=== PATIENT | male | born 1960 | race Caucasian/White ===

== ENCOUNTER 2020-10-02 14:16 | Outpatient (CLI) | payer BC | END 2020-10-02 23:59 | disposition home or self-care (01) | LOC: MRI 14:16 | PROVIDERS: ATTEND Family Medicine | DX: S83.232A Complex tear of medial meniscus, current injury, left knee, initial encounter (principal); S83.231A Complex tear of medial meniscus, current injury, right knee, initial encounter; M25.462 Effusion, left knee; M25.461 Effusion, right knee; X58.XXXA Exposure to other specified factors, initial encounter; Y93.89 Activity, other specified; Y92.89 Other specified places as the place of occurrence of the external cause; Y99.8 Other external cause status | CPT/HCPCS: 73721-TC ==

== ENCOUNTER → 2021-01-03 | Outpatient (CLI) | payer BC ==
[~2021-01-03] MED LIST: GADOTERATE MEGLUMINE 10 MMOL/20 ML VIAL IV ONE
== END | disposition home or self-care (01) ==
LOC: MRI 10:07
PROVIDERS: ATTEND Family Medicine
DX: D73.4 Cyst of spleen (principal); N28.1 Cyst of kidney, acquired; K76.89 Other specified diseases of liver; M47.813 Spondylosis without myelopathy or radiculopathy, cervicothoracic region; M48.03 Spinal stenosis, cervicothoracic region; M25.78 Osteophyte, vertebrae
CPT/HCPCS: 72141; 74183; A9575

== ENCOUNTER 2021-01-31 13:44 | Outpatient (CLI) | payer BC | END 2021-01-31 23:59 | disposition home or self-care (01) | LOC: LAB 13:44 | PROVIDERS: ATTEND Student in an Organized Health Care Education/Training Program | DX: Z01.812 Encounter for preprocedural laboratory examination (principal); Z20.822 Contact with and (suspected) exposure to COVID-19 | CPT/HCPCS: C9803; U0003 ==

== ENCOUNTER 2021-02-05 07:35 | Day surgery (SDC) | payer BC ==
[2021-02-05] MEDS ORDERED: EPINEPHRINE (1:1000) 1 MG/ML AMPUL ONE (08:26)
[2021-02-05] MEDS ORDERED: POLYMYXIN B SULFATE 0 UNITS ONE (08:26)
[2021-02-05] MEDS ORDERED: BUPIVACAINE 0.5 % PF 150 MG/30 ML VIAL ONE (08:26)
[2021-02-05] MEDS ORDERED: ANESTHESIA TRAY IN PYXIS 1 EA TRAY MC ONE (08:26)
[2021-02-05] MEDS ORDERED: MIDAZOLAM HCL 2 MG/2ML VIAL ONE (08:53)
[2021-02-05] MEDS ORDERED: FENTANYL PF 100MCG/2ML AMPUL ONE (08:53)
[2021-02-05] MEDS ORDERED: MORPHINE SULFATE/PF 10 MG/10ML (1MG/ML) AMPUL ONE (09:32)
== END 2021-02-05 11:10 | disposition home or self-care (01) ==
LOC: DS 07:35
PROVIDERS: ATTEND Student in an Organized Health Care Education/Training Program
DX: S83.242A Other tear of medial meniscus, current injury, left knee, initial encounter (principal); X58.XXXA Exposure to other specified factors, initial encounter; Y93.89 Activity, other specified; Y92.89 Other specified places as the place of occurrence of the external cause; Y99.8 Other external cause status
CPT/HCPCS: 29881; A4217; A6253; J0171; J0690; J1100; J1885; J2250; J2274; J2405; J2704; J3010; J3490 ×2; J7030

== ENCOUNTER 2021-03-21 10:24 | Outpatient (CLI) | payer BC | END 2021-03-21 23:59 | disposition home or self-care (01) | LOC: WOU 10:24 | PROVIDERS: ATTEND Podiatrist Foot & Ankle Surgery | DX: M21.41 Flat foot [pes planus] (acquired), right foot (principal); L84 Corns and callosities; M79.672 Pain in left foot; M79.671 Pain in right foot | CPT/HCPCS: G0463 ==

== ENCOUNTER 2021-03-24 11:34 | Outpatient (CLI) | payer BC | END 2021-03-24 23:59 | disposition home or self-care (01) | LOC: RAD 11:34 | PROVIDERS: ATTEND Podiatrist Foot & Ankle Surgery | DX: M19.071 Primary osteoarthritis, right ankle and foot (principal); M21.41 Flat foot [pes planus] (acquired), right foot; L57.0 Actinic keratosis | CPT/HCPCS: 73630-TC ==

== ENCOUNTER 2021-04-01 10:00 | Outpatient (CLI) | payer BC | END 2021-04-01 23:59 | disposition home or self-care (01) | LOC: WOU 10:00 | PROVIDERS: ATTEND Podiatrist Foot & Ankle Surgery | DX: M21.41 Flat foot [pes planus] (acquired), right foot (principal); L84 Corns and callosities; M21.621 Bunionette of right foot; M79.672 Pain in left foot; M79.671 Pain in right foot | CPT/HCPCS: G0463 ==

== ENCOUNTER 2021-05-16 10:20 | Outpatient (CLI) | payer BC | END 2021-05-16 23:59 | disposition home or self-care (01) | LOC: WOU 10:20 | PROVIDERS: ATTEND Podiatrist Foot & Ankle Surgery | DX: L84 Corns and callosities (principal); M21.621 Bunionette of right foot; M21.41 Flat foot [pes planus] (acquired), right foot; M79.672 Pain in left foot; M79.671 Pain in right foot | CPT/HCPCS: G0463 ==

== ENCOUNTER 2021-07-08 09:38 | Outpatient (CLI) | payer BC ==
[2021-07-08] MEDS ORDERED: GADOTERATE MEGLUMINE 10 MMOL/20 ML VIAL IV ONE (09:39)
== END 2021-07-08 23:59 | disposition home or self-care (01) ==
LOC: MRI 09:38
PROVIDERS: ATTEND Internal Medicine Hematology & Oncology
DX: R90.82 White matter disease, unspecified (principal); J32.2 Chronic ethmoidal sinusitis
CPT/HCPCS: 70542; 70553; A9575

== ENCOUNTER 2021-08-11 08:00 | Outpatient (CLI) | payer BC ==
[2021-08-15] MEDS ORDERED: LIDOCAINE HCL/MPF 1% 30 ML VIAL IJ ONE (13:13)
[2021-08-15] MEDS ORDERED: IOHEXOL 240MG/ML 50 ML IV ONE (13:13)
[2021-08-15] MEDS ORDERED: BUPIVACAINE 0.25% 75 MG/30 ML VIAL ONE (13:13)
[2021-08-15] MEDS ORDERED: HEPARIN SODIUM, PORCINE 1,000 UNIT/ML VIAL ONE (13:18)
== END 2021-08-11 23:59 | disposition home or self-care (01) ==
LOC: LAB 08:00
PROVIDERS: ATTEND Surgery
DX: Z01.812 Encounter for preprocedural laboratory examination (principal); Z20.822 Contact with and (suspected) exposure to COVID-19
CPT/HCPCS: C9803; U0003; J1644; J3490; Q9966

== ENCOUNTER 2021-08-15 11:19 | Day surgery (SDC) | payer BC ==
--- NOTE | 2021-08-15 11:45 | NUR ---
RN MS NOTES RECEIVED PT FROM STAFF, PT IS AWAKE, ALERT AND ORIENTED, AMBULATORY WITH STEADY GAIT, NO COMPLAINT OF PAIN OR ANY DISCOMFORT, ASSISTED TO ROOM, ROOM SET UP ORIENTATION PROVIDED TO PT, VERBALIZED UNDERSTANDING, VITALS TAKEN AND RECORDED, BELONGINGS ACCOUNTED FOR, ASSISTED WITH GOWNING, PER O.R. SURGERY TIME IS 12:30, PT INFORMED.
[2021-08-15 12:00] VITALS: BP 124/82
--- NOTE | 2021-08-15 12:20 | NUR ---
RN MS NOTES PT PICKED UP FOR SURGERY, AWAKE, ALERT AND ORIENTED, NO COMPLAINT OF PAIN, IN STABLE CONDITION, ALL CONSENTS SIGNED, CHECKLIST COMPLETED.
[2021-08-15] MEDS ORDERED: ACETAMINOPHEN 325 MG TABLET PO PRN (13:30)
[2021-08-15] MEDS ORDERED: HYDROCODONE/APAP 5/325MG TABLET PO PRN (13:30)
[2021-08-15] MEDS ORDERED: IBUPROFEN 400 MG TABLET PO PRN (13:30)
[2021-08-15 15:00] VITALS: BP 124/85
--- NOTE | 2021-08-15 15:00 | NUR ---
RN MS NOTES PT BACK FROM SURGERY, AWAKE, ALERT AND ORIENTED, DENIES PAIN, NOT IN DISTRESS, TOLERATES ROOM AIR, ABLE TO AMBULATE TO THE BATHROOM WITH STEADY GAIT, POST ORDERS RECEIVED, NOTED AND CARRIED OUT, NO BLEEDING NOTED TO RIGHT UPPER CHEST, DRESSING INTACT AND DRY, ICE APPLIED, VITALS TAKEN AND RECORDED.
--- NOTE | 2021-08-15 16:32 | NUR ---
RN MS NOTES PT AWAKE, ALERT AND ORIENTED, SITTING IN BED, NO COMPLAINT OF PAIN, RESPIRATIONS NORMAL, CALL LIGHT WITHIN REACH, VITAL SIGNS REMAIN STABLE, ABLE TO AMBULATE TO THE BATHROOM WITH STEADY GAIT, CHEST X RAY DONE, NO BLEEDING NOTED AT RIGHT UPPER CHEST PORTACATH INSERTION SITE, DRESSING DRY AND INTACT, DISCHARGE ORDER GIVEN BY DR. GIANG, DISCHARGE AND FOLLOW UP INSTRUCTIONS DISCUSSED WITH PT, VERBALIZED UNDERSTANDING, BELONGINGS ACCOUNTED FOR, PICKED UP BY DAUGHTER, ACCOMPANIED TO HOSPITAL LOBBY, LEFT IN STABLE CONDITION.
== END 2021-08-15 16:00 | disposition home or self-care (01) ==
LOC: DS 11:19 → UNDOADMIN 11:32 → MED 11:32 → DS 16:00 → UNDODISIN 18:38
PROVIDERS: ATTEND Surgery
DX: C80.1 Malignant (primary) neoplasm, unspecified (principal)
CPT/HCPCS: 36561; 71045 ×2; 76937; C1788; J1644 ×2; J2704; J3490 ×3; J7030; Q9966; G0378

== ENCOUNTER 2022-05-08 07:08 | Outpatient (CLI) | payer BC ==
[2022-05-08] MEDS ORDERED: GADOTERATE MEGLUMINE 5 MMOL/10 ML VIAL IV ONE (07:09)
== END 2022-05-08 23:59 | disposition home or self-care (01) ==
LOC: LAB 07:08 → MRI 23:59
PROVIDERS: ATTEND Internal Medicine Hematology & Oncology
DX: R16.0 Hepatomegaly, not elsewhere classified (principal); N28.1 Cyst of kidney, acquired; D73.4 Cyst of spleen
CPT/HCPCS: 74183; A9575

== ENCOUNTER 2022-06-25 07:46 | Outpatient (CLI) | payer BC ==
[2022-06-25] MEDS ORDERED: GADOTERATE MEGLUMINE 10 MMOL/20 ML VIAL IV ONE (07:47)
== END 2022-06-25 23:59 | disposition home or self-care (01) ==
LOC: MRI 07:46
DX: N28.1 Cyst of kidney, acquired (principal); K76.89 Other specified diseases of liver; R93.2 Abnormal findings on diagnostic imaging of liver and biliary tract
CPT/HCPCS: 74183